=== PATIENT | female | born 1990 | race Caucasian/White ===

== ENCOUNTER 2020-11-24 13:11 | Outpatient (CLI) | payer OTHER ==
[2020-11-24 14:41] LABS: RED BLOOD COUNT 5.03 M/UL (4.00-5.10); WHITE BLOOD COUNT 11.8 K/UL (4.5-11.0)
[2020-11-25] MEDS ORDERED: GLUCOPHAGE 500500 MG PO (07:52)
[2020-11-25] MEDS ORDERED: PRENATABS FA T1 EACH PO (07:52)
[2020-11-25] MEDS ORDERED: PROZAC40 MG PO (07:54)
[2020-11-25] MEDS ORDERED: PROPRANOLOL HC120 MG PO (07:54)
[2020-11-25] MEDS ORDERED: COLACE 100MG C100 MG PO (15:00)
[2020-11-25] MEDS ORDERED: IBUPROFEN600 MG PO (15:00)
[2020-11-25] MEDS ORDERED: HYDROCODON-ACE1 EAC6 PO (15:00)
== END 2020-11-24 14:20 | disposition home or self-care (01) ==
LOC: GENOP 13:11
PROVIDERS: Obstetrics & Gynecology
DX: Z01.812 Encounter for preprocedural laboratory examination (principal); O40.9XX0 Polyhydramnios, unspecified trimester, not applicable or unspecified; Z20.822 Contact with and (suspected) exposure to COVID-19
CPT/HCPCS: 36415; 81001; 85025; U0002

== ENCOUNTER 2020-11-25 06:34 | Inpatient (IN) | payer OTHER ==
[~2020-11-25] VITALS: Ht 172.7 cm; Wt 134.7 kg
[2020-11-25] MEDS ORDERED: GLUCOPHAGE 500500 MG PO (07:52)
[2020-11-25] MEDS ORDERED: PRENATABS FA T1 EACH PO (07:52)
[2020-11-25] MEDS ORDERED: PROZAC40 MG PO (07:54)
[2020-11-25] MEDS ORDERED: PROPRANOLOL HC120 MG PO (07:54)
[2020-11-25] MEDS ORDERED: HYDROCODON-ACE1 EAC6 PO (15:00)
[2020-11-25] MEDS ORDERED: IBUPROFEN600 MG PO (15:00)
[2020-11-25] MEDS ORDERED: COLACE 100MG C100 MG PO (15:00)
[2020-11-26 06:00] LABS: HEMOGLOBIN 11.1 gm/dl (12.3-15.3)
== END 2020-11-27 13:15 | disposition home or self-care (01) | DRG 788 ==
LOC: OB 06:34
PROVIDERS: ADMIT Obstetrics & Gynecology
PROC: 4A1HXCZ Monitoring of Products of Conception, Cardiac Rate, External Approach (ICD-10-PCS; 2020-11-25)
PROC: 10D00Z1 Extraction of Products of Conception, Low, Open Approach (ICD-10-PCS; principal; 2020-11-25 11:30)
DX: O32.0XX0 Maternal care for unstable lie, not applicable or unspecified (principal); O99.214 Obesity complicating childbirth; Z3A.39 39 weeks gestation of pregnancy; Z37.0 Single live birth; E66.9 Obesity, unspecified; Z86.73 Personal history of transient ischemic attack (TIA), and cerebral infarction without residual deficits; F41.9 Anxiety disorder, unspecified; O99.344 Other mental disorders complicating childbirth; Z20.822 Contact with and (suspected) exposure to COVID-19; Z88.1 Allergy status to other antibiotic agents; Z88.0 Allergy status to penicillin; Z82.49 Family history of ischemic heart disease and other diseases of the circulatory system; Z86.69 Personal history of other diseases of the nervous system and sense organs
CPT/HCPCS: 36415; 81001; 82800; 85014; 85018; 85025; 90471; 90715; C9113; J1580; J1885; J2274; J2405; J2590; J3010; J7120; U0002